=== PATIENT | female | born 1945 | race Caucasian/White ===

== ENCOUNTER → 2016-11-21 08:46 | Day surgery (SDC) | payer MEDICARE ==
[~2016-11-21 08:46] MED LIST: Acetaminophen TAB* 325 MG PO PRN; Buffered Lidocaine 1% SYRIN* 3 ML/SYR SYRINGE INTRADERM ONE; Cyclopentolate 1% OPTH.SOL* 2 ML BTL ONE; Flurbiprofen 0.03% OPTH.SOL* 2.5 ML BTL ONE; Lidocaine 1% MPF* 2 ML VIAL ONE; Midazolam* 1 MG/ML 2 ML VIAL (2 MG) ONE; Neomycin/Polymy/Dex OPHTH.OIN* 3.5 GM ONE; Phenylephrine 2.5% OPTH.SOL* 2 ML BTL ONE; Tetracaine 0.5% OPTH.SOL 4 ML* 1 DROP BTL ONE; Tropicamide 1% OPTH.SOL* BTL ONE; fentaNYL* 50 MCG/ML 2 ML VIAL (100 MCG VIAL) ONE
[2016-11-21 10:50] VITALS: BP 147/57
--- NOTE | 2016-11-21 22:31 | OP ---
DATE OF OPERATION: 11/21/16 [facility] DATE OF : 49 SURGEON: Dr. Renny Benson. CUSTOMER COMPLAINT SERVICE SUPERVISOR: None. ANESTHESIOLOGIST: Piter Song MD ANESTHESIA: Topical with intravenous sedation. PRE-OP DIAGNOSIS: Cataract, left eye. POST-OP DIAGNOSIS: Cataract, left eye. OPERATIVE PROCEDURE: Phacoemulsification and cataract extraction with posterior chamber intraocular lens implant, left eye. COMPLICATIONS: None. BLOOD LOSS: None. DESCRIPTION OF PROCEDURE: The patient was brought to the operating room and received a small amount of intravenous sedation. A drop of Tetracaine was placed in her left eye. She was prepped and draped in the usual sterile fashion for ophthalmic surgery and attention was directed to the left eye where a speculum was placed. A paracentesis was created at the 5 o'clock position and 0.1 cc of 1 percent preservative-free Lidocaine was injected into the anterior chamber followed by DisCoVisc. The eye was digitally stabilized while a 2.75 mm keratome was used to create a triplanar clear corneal incision at the 3 o'clock position. A continuous curvilinear capsulorrhexis was created with a cystotome and Utrata forceps. BSS on a cannula was used to hydrodissect the lens from the capsule. Phacoemulsification was performed in a divide-and- conquer technique to create four fragments which were removed. Residual cortical material was removed with irrigation and aspiration. DisCoVisc was used to inflate the capsular bag and an AU00T0 21.5 diopter lens was folded and inserted into the capsular bag. DisCoVisc was removed using irrigation and aspiration. BSS on a cannula was used to hydrate the corneal stroma and seal the wound. At the end of the case the pupil was round and the lens was centered. The eye was of normal pressure and the wound was water tight. The speculum was removed and topical Maxitrol ointment was placed on the surface of the eye. The eye was closed, patched and shielded and the patient was sent to the recovery room in stable condition with post operative instructions and follow-up appointment given. [id number] #: [id number] MTDD
== END | disposition home or self-care (01) ==
LOC: OREAST 08:46
PROVIDERS: ATTEND Ophthalmology
DX: H26.9 Unspecified cataract (principal)
CPT/HCPCS: J2250; J3010; V2632

== ENCOUNTER 2021-06-26 18:03 | Inpatient (IN) ==
[2021-06-26 20:20] LABS: ABS Lymphocytes 0.6 10^3/ul (1.0-4.8); ABS Monocytes 0.4 10^3/ul (0-0.8); ABS Neutrophils 4.7 10^3/ul (1.5-7.7); Hematocrit 31 % (35-47); Hemoglobin 10.7 g/dL (12.0-16.0); Lymphocyte % 11.2 %; Mean Corpuscular HGB Conc 35 g/dL (31-36); Mean Corpuscular Hemoglobin 31 pg (27-31); Mean Corpuscular Volume 89 fL (80-97); Mean Platelet Volume 8.8 fL (7.4-10.4); Platelet Count 96 10^3/uL (150-450); Red Blood Count 3.47 10^6 /uL (3.70-4.87); Red Cell Distribution Width 14 % (10-15); White Blood Count 5.7 10^3/uL (3.5-10.8)
[2021-06-26 20:34] LABS: ALT 27 U/L (7-52); AST 33 U/L (13-39); Albumin 3.7 g/dL (3.2-5.2); Albumin/Globulin Ratio 1.4 (1-3); Alkaline Phosphatase 59 U/L (35-149); Anion Gap 7 mmol/L (2-11); Blood Urea Nitrogen 36 mg/dL (6-24); CO2 Carbon Dioxide 30 mmol/L (22-32); Calcium 9.1 mg/dL (8.6-10.3); Chloride 93 mmol/L (101-111); Globulin 2.6 g/dL (2-4); Glucose 140 mg/dL (70-100); Potassium 3.8 mmol/L (3.5-5.0); Sodium 130 mmol/L (135-145); Total Protein 6.3 g/dL (6.4-8.9)
[2021-06-26 20:53] LABS: Troponin I 0.03 ng/mL (<0.03)
[2021-06-26 21:08] LABS: TSH Ultra Thyroid Stim Horm 0.33 mcIU/mL (0.34-5.60)
[2021-06-26] MEDS ORDERED: Lactated Ringers 1000 ml BAG 1,000 ML IV ONE (22:00)
[2021-06-27] MEDS ORDERED: Diltiazem IV push/loading dose 5 MG/ML 5 ML vial (25 mg) IV SLOW PU ONE (02:03)
[2021-06-27 02:05] LABS: Urine Appearance Cloudy; Urine Bilirubin Negative (Negative); Urine Blood Negative (Negative); Urine Color Yellow; Urine Glucose Negative (Negative); Urine Ketones Trace (Negative); Urine Nitrite Negative (Negative); Urine Protein 2+(100 mg/dL) (Negative); Urine Specific Gravity 1.024 (1.002-1.030); Urine Urobilinogen Negative (Negative)
[2021-06-27 02:11] LABS: Urine Bacteria Absent (Absent); Urine Red Blood Cell 2+(6-10/hpf) (Absent); Urine Squamous Epithelial Cell Present (Absent); Urine White Blood Cell 1+(6-10/hpf) (Absent)
[2021-06-27 02:38] LABS: Troponin I 0.03 ng/mL (<0.03)
[2021-06-27] MEDS ORDERED: Diltiazem IV BAG D5W Premix 125 MG/125 ML BAG IV SCH (03:00)
[2021-06-27 04:00] LABS: Rapid COVID-19 Molecular Undetected (Undetected)
[2021-06-27 07:06] LABS: Anion Gap 5 mmol/L (2-11); Blood Urea Nitrogen 31 mg/dL (6-24); CO2 Carbon Dioxide 27 mmol/L (22-32); Calcium 8.3 mg/dL (8.6-10.3); Chloride 94 mmol/L (101-111); Glucose 207 mg/dL (70-100); Potassium 3.4 mmol/L (3.5-5.0); Sodium 126 mmol/L (135-145)
[2021-06-27 07:17] LABS: Troponin I 0.07 ng/mL (<0.03)
[2021-06-27 07:55] LABS: Hematocrit 28 % (35-47); Hemoglobin 9.8 g/dL (12.0-16.0); Mean Corpuscular HGB Conc 35 g/dL (31-36); Mean Corpuscular Hemoglobin 31 pg (27-31); Mean Corpuscular Volume 89 fL (80-97); Mean Platelet Volume 9.5 fL (7.4-10.4); Platelet Count 82 10^3/uL (150-450); Red Blood Count 3.15 10^6 /uL (3.70-4.87); Red Cell Distribution Width 14 % (10-15); White Blood Count 4.8 10^3/uL (3.5-10.8)
[2021-06-27 08:36] LABS: ABS Lymphocytes 0.7 10^3/ul (1.0-4.8); ABS Monocytes 0.3 10^3/ul (0-0.8); ABS Neutrophils 3.7 10^3/ul (1.5-7.7); Lymphocyte % 15.1 %; Polychromasia 1+
[2021-06-27 10:12] LABS: Hematocrit 29 % (35-47); Mean Corpuscular HGB Conc 35 g/dL (31-36); Mean Corpuscular Hemoglobin 31 pg (27-31); Mean Corpuscular Volume 90 fL (80-97); Mean Platelet Volume 9.3 fL (7.4-10.4); Platelet Count 85 10^3/uL (150-450); Red Blood Count 3.24 10^6 /uL (3.70-4.87); Red Cell Distribution Width 14 % (10-15); White Blood Count 5.2 10^3/uL (3.5-10.8)
[2021-06-27 10:32] LABS: ALT 25 U/L (7-52); AST 32 U/L (13-39); Albumin/Globulin Ratio 1.3 (1-3); Alkaline Phosphatase 59 U/L (35-149); Anion Gap 5 mmol/L (2-11); Blood Urea Nitrogen 31 mg/dL (6-24); CO2 Carbon Dioxide 27 mmol/L (22-32); Calcium 8.1 mg/dL (8.6-10.3); Chloride 94 mmol/L (101-111); Globulin 2.4 g/dL (2-4); Glucose 212 mg/dL (70-100); Potassium 3.5 mmol/L (3.5-5.0); Sodium 126 mmol/L (135-145); Total Protein 5.4 g/dL (6.4-8.9)
[2021-06-27] MEDS ORDERED: Dextrose 50% Syringe 50 ml 25 GM/50 ML SYRINGE IV PUSH PRN (10:36)
[2021-06-27 10:38] LABS: RBC Morphology Normal (Normal)
[2021-06-27 10:39] LABS: ABS Lymphocytes 0.6 10^3/ul (1.0-4.8); ABS Monocytes 0.3 10^3/ul (0-0.8); ABS Neutrophils 4.2 10^3/ul (1.5-7.7); Lymphocyte % 12.5 %
[2021-06-27] MEDS ORDERED: DILTIAZEM IV SCH (11:00)
[2021-06-27] MEDS ORDERED: D5W IV SCH (11:00)
[2021-06-27] MEDS ORDERED: Ondansetron 4 mg VIAL 2 MG/ML 2 ml VIAL IV PRN (13:08)
[2021-06-27] MEDS ORDERED: Albuterol HFA INHALER 8 gm MDI INH PRN (13:12)
[2021-06-27] MEDS ORDERED: Enoxaparin 40 MG/0.4 ML SYR SUBCUT SCH (14:00)
[2021-06-27] MEDS: NS 0.9% 1000 ml BAG 1,000 ML IV SCH ×2 (14:24→22:52)
[2021-06-27] MEDS ORDERED: Enoxaparin 60 MG/0.6 ML SYR SUBCUT SCH (17:00)
[2021-06-27] MEDS ORDERED: Enoxaparin 60 MG/0.6 ML SYR SUBCUT ONE (17:44)
[2021-06-27 17:55] LABS: Folate > 20.00 ng/mL (5.90-24.80)
[2021-06-27 17:56] LABS: Vitamin B12 744 pg/mL (180-914)
[2021-06-27] MEDS ORDERED: NS 0.9% 500 ml BAG 500 ML IV ONE (18:01)
[2021-06-27 19:01] LABS: Potassium 3.6 mmol/L (3.5-5.0)
[2021-06-27] MEDS: Azithromycin 500 mg/250 ml NS 500 MG/250 ML BAG IVPB SCH (22:15)
[2021-06-27] MEDS: Insulin GLARGINE 100 un/ml 10 ml VIAL SUBCUT SCH (23:00)
[2021-06-28 05:34] LABS: ABS Lymphocytes 1.1 10^3/ul (1.0-4.8); ABS Monocytes 0.5 10^3/ul (0-0.8); ABS Neutrophils 4.6 10^3/ul (1.5-7.7); Hematocrit 28 % (35-47); Hemoglobin 9.6 g/dL (12.0-16.0); Lymphocyte % 17.4 %; Mean Corpuscular HGB Conc 35 g/dL (31-36); Mean Corpuscular Hemoglobin 31 pg (27-31); Mean Corpuscular Volume 88 fL (80-97); Mean Platelet Volume 9.9 fL (7.4-10.4); Platelet Count 85 10^3/uL (150-450); Red Blood Count 3.15 10^6 /uL (3.70-4.87); Red Cell Distribution Width 14 % (10-15); White Blood Count 6.2 10^3/uL (3.5-10.8)
[2021-06-28] MEDS: NS 0.9% 1000 ml BAG 1,000 ML IV SCH ×2 (05:35→12:58)
[2021-06-28 05:53] LABS: Anion Gap 5 mmol/L (2-11); Blood Urea Nitrogen 33 mg/dL (6-24); CO2 Carbon Dioxide 26 mmol/L (22-32); Calcium 7.7 mg/dL (8.6-10.3); Chloride 97 mmol/L (101-111); Glucose 94 mg/dL (70-100); Potassium 3.7 mmol/L (3.5-5.0); Sodium 128 mmol/L (135-145)
[2021-06-28 09:10] LABS: Total Iron Binding Capacity 176 mcg/dL (250-450); Transferrin 126 mg/dL (203-362)
[2021-06-28 09:19] LABS: % Iron Saturation 11 % (15-55); Iron < 20 ug/dL (50-212); Unsaturated Iron Binding < 161 ug/dL
[2021-06-28] MEDS ORDERED: Metoprolol Tartrate 5 mg VIAL 5 ml VIAL (1 mg/ml) IV ONE ×2 (09:22→10:33)
[2021-06-28 09:31] LABS: Ferritin 760.1 ng/mL (11-307)
[2021-06-28] MEDS ORDERED: Diltiazem IV push/loading dose 5 MG/ML 5 ML vial (25 mg) IV SLOW PU ONE ×2 (11:51→13:30)
[2021-06-28] MEDS: cefTRIAXone 1 gm/50 mL NS BAG 1 GM/50 ML BAG IVPB SCH (13:45)
[2021-06-28] MEDS: Azithromycin 500 mg/250 ml NS 500 MG/250 ML BAG IVPB SCH (16:52)
[2021-06-28] MEDS ORDERED: Enoxaparin 80 MG/0.8 ML SYR SUBCUT SCH (17:00)
[2021-06-28 18:04] LABS: RBC Parasite Smear No Parasites Seen (No Parasite)
[2021-06-28] MEDS ORDERED: Magnesium Hydroxide LIQ 30 ML UDC PO PRN (19:07)
[2021-06-28] MEDS: Insulin GLARGINE 100 un/ml 10 ml VIAL SUBCUT SCH (20:52)
[2021-06-29] MEDS ORDERED: Iodixanol (CONTRAST) 320 MG/ML 100 ML SDV IV ONE (11:54)
[2021-06-29 12:21] LABS: Influenza A Molecular Negative (Negative); Influenza B Molecular Negative (Negative)
[2021-06-29] MEDS: DOXYcycline 100 MG in NS 0.9% 250 ml 250 ML IVPB SCH ×2 (13:21→20:40)
[2021-06-29] MEDS: cefTRIAXone 1 gm/50 mL NS BAG 1 GM/50 ML BAG IVPB SCH (15:47)
[2021-06-29] MEDS ORDERED: Furosemide 20 mg/2 ml IV VIAL IV SLOW PU ONE (16:37)
[2021-06-29 19:04] LABS: Anaplasma phagocytophilum Positive (Negative); B. miyamotoi PCR, B Negative (Negative); Babesia divergens/MO-1 Negative (Negative); Babesia ducani Negative (Negative); Ehrlichia chaffeensis Negative (Negative); Ehrlichia ewingii/canis Negative (Negative); Ehrlichia muris eauclairensis Negative (Negative)
[2021-06-29] MEDS: Insulin GLARGINE 100 un/ml 10 ml VIAL SUBCUT SCH (20:16)
[2021-06-29 20:28] LABS: Free T3 2.8 pg/mL (2.5-3.9); Free T4 1.09 ng/dL (0.61-1.12)
[2021-06-29 20:33] LABS: Thyroid Peroxidase Antibodies 0.35 IU/mL (<9)
[2021-06-30 01:11] LABS: IgG Immunoblot Negative (Negative); IgM Immunoblot Negative (Negative)
[2021-06-30] MEDS: DOXYcycline 100 MG in NS 0.9% 250 ml 250 ML IVPB SCH ×2 (09:04→19:58)
[2021-06-30 09:19] LABS: ABS Monocytes 0.6 10^3/ul (0-0.8); ABS Neutrophils 4.3 10^3/ul (1.5-7.7); Eosinophil % 0.2 %; Hematocrit 32 % (35-47); Hemoglobin 10.9 g/dL (12.0-16.0); Lymphocyte % 28.7 %; Mean Corpuscular HGB Conc 35 g/dL (31-36); Mean Corpuscular Hemoglobin 30 pg (27-31); Mean Corpuscular Volume 88 fL (80-97); Mean Platelet Volume 9.2 fL (7.4-10.4); Nucleated Red Blood Cells % 0.1; Platelet Count 115 10^3/uL (150-450); Red Blood Count 3.58 10^6 /uL (3.70-4.87); Red Cell Distribution Width 15 % (10-15)
[2021-06-30 09:35] LABS: Calcium 7.9 mg/dL (8.6-10.3); Magnesium 1.9 mg/dL (1.9-2.7); Potassium 3.6 mmol/L (3.5-5.0)
[2021-06-30] MEDS ORDERED: Furosemide 20 mg/2 ml IV VIAL IV SLOW PU ONE (16:09)
[2021-06-30] MEDS: Insulin GLARGINE 100 un/ml 10 ml VIAL SUBCUT SCH (19:57)
[2021-07-01] MEDS: DOXYcycline 100 MG in NS 0.9% 250 ml 250 ML IVPB SCH ×2 (07:56→20:54)
[2021-07-01] MEDS ORDERED: Metoprolol Tartrate 5 mg VIAL 5 ml VIAL (1 mg/ml) IV ONE (09:17)
[2021-07-01 10:39] LABS: Calcium 7.9 mg/dL (8.6-10.3); Magnesium 1.8 mg/dL (1.9-2.7); Potassium 4.9 mmol/L (3.5-5.0)
[2021-07-01] MEDS ORDERED: Magnesium Sulfate 2 gm BAG 2 GM/50 ML BAG IVPB ONE (16:58)
[2021-07-01] MEDS: Insulin GLARGINE 100 un/ml 10 ml VIAL SUBCUT SCH (22:01)
[2021-07-02 07:02] LABS: Hematocrit 30 % (35-47); Mean Corpuscular HGB Conc 34 g/dL (31-36); Mean Corpuscular Hemoglobin 30 pg (27-31); Mean Corpuscular Volume 90 fL (80-97); Mean Platelet Volume 8.6 fL (7.4-10.4); Platelet Count 220 10^3/uL (150-450); Red Blood Count 3.28 10^6 /uL (3.70-4.87); Red Cell Distribution Width 14 % (10-15); White Blood Count 6.5 10^3/uL (3.5-10.8)
[2021-07-02 07:22] LABS: ABS Eosinophils 0.1 10^3/ul (0-0.6); ABS Lymphocytes 2.4 10^3/ul (1.0-4.8); ABS Monocytes 0.9 10^3/ul (0-0.8); ABS Neutrophils 3.1 10^3/ul (1.5-7.7); Eosinophil % 1.7 %; Lymphocyte % 36.4 %; Nucleated Red Blood Cells % 0.1
[2021-07-02] MEDS: DOXYcycline 100 MG in NS 0.9% 250 ml 250 ML IVPB SCH ×2 (09:12→20:57)
[2021-07-02] MEDS ORDERED: Metoprolol Tartrate 5 mg VIAL 5 ml VIAL (1 mg/ml) IV ONE (11:43)
[2021-07-02] MEDS: Insulin GLARGINE 100 un/ml 10 ml VIAL SUBCUT SCH (20:57)
[2021-07-03] MEDS: DOXYcycline 100 MG in NS 0.9% 250 ml 250 ML IVPB SCH ×2 (09:14→21:44)
[2021-07-03 10:11] LABS: Albumin 2.7 g/dL (3.2-5.2); Calcium 7.9 mg/dL (8.6-10.3); Globulin 2.6 g/dL (2-4); Potassium 4.4 mmol/L (3.5-5.0); Total Bilirubin 0.5 mg/dL (0.2-1.0); Total Protein 5.3 g/dL (6.4-8.9)
[2021-07-03] MEDS: Insulin GLARGINE 100 un/ml 10 ml VIAL SUBCUT SCH (21:49)
[2021-07-04] MEDS: DOXYcycline 100 MG in NS 0.9% 250 ml 250 ML IVPB SCH ×2 (08:22→20:45)
[2021-07-04] MEDS: Insulin GLARGINE 100 un/ml 10 ml VIAL SUBCUT SCH (20:45)
[2021-07-05 04:41] LABS: ABS Eosinophils 0.1 10^3/ul (0-0.6); ABS Lymphocytes 1.8 10^3/ul (1.0-4.8); ABS Monocytes 0.8 10^3/ul (0-0.8); Eosinophil % 2.1 %; Hematocrit 30 % (35-47); Hemoglobin 10.2 g/dL (12.0-16.0); Lymphocyte % 26.3 %; Mean Corpuscular HGB Conc 34 g/dL (31-36); Mean Corpuscular Hemoglobin 31 pg (27-31); Mean Corpuscular Volume 90 fL (80-97); Platelet Count 356 10^3/uL (150-450); Red Cell Distribution Width 15 % (10-15); White Blood Count 6.7 10^3/uL (3.5-10.8)
[2021-07-05 04:56] LABS: Calcium 8.2 mg/dL (8.6-10.3); Potassium 4.6 mmol/L (3.5-5.0)
[2021-07-05] MEDS ORDERED: Metoprolol Tartrate 5 mg VIAL 5 ml VIAL (1 mg/ml) IV ONE (05:58)
[2021-07-05] MEDS ORDERED: fentaNYL 100 mcg/2 ml 50 MCG/ML VIAL ONE (07:53)
[2021-07-05] MEDS ORDERED: Midazolam 5 mg/5 ml VIAL 1 mg/ml 5 ml VIAL (5 mg) ONE ×2 (07:53→08:01)
[2021-07-05] MEDS ORDERED: Naloxone 0.4 mg VIAL 0.4 mg/ml 1 ml VIAL ONE (07:54)
[2021-07-05] MEDS ORDERED: Flumazenil 0.5 mg/5 ml 0.1 MG/ML 5 ml VIAL ONE (07:54)
[2021-07-05] MEDS: DOXYcycline 100 MG in NS 0.9% 250 ml 250 ML IVPB SCH ×3 (11:01→20:21)
[2021-07-05] MEDS: Insulin GLARGINE 100 un/ml 10 ml VIAL SUBCUT SCH (20:24)
[2021-07-06 02:42] LABS: Magnesium 1.9 mg/dL (1.9-2.7); Potassium 4.1 mmol/L (3.5-5.0)
[2021-07-06] MEDS: DOXYcycline 100 MG in NS 0.9% 250 ml 250 ML IVPB SCH (09:33)
[2021-07-06 12:48] VITALS: BP 131/63
== END 2021-07-06 14:33 | disposition home or self-care (01) | DRG 871 ==
LOC: ED 18:03 → SUATTDRO 06-27 13:08 → MED 06-27 13:08 → MEDTELE 06-28 17:43
PROVIDERS: ADMIT Hospitalist; ATTEND Internal Medicine
PROC: CARDVER (ICD-10-PCS; 2021-07-05 08:35)